=== PATIENT | female | born 1930 | race Caucasian/White ===

== ENCOUNTER → 2016-08-10 | Outpatient (CLI) | payer MEDICARE, OTHER ==
[2015-08-29 00:27] VITALS: BP 145/71
[~2016-08-10] MED LIST: AMIODARONE200 MG PO; ARICEPT10 M1 PO; CALCIUM CITRAT250 M1 PO; CLARITIN10 M1 PO; DAILY MULTIPLE1 T18 PO; FLONASE ALLERG9.9 ML NS; LOPRESSOR 225 MG/TAB PO; LOW DOSE ASPIRI81 M1 PO; MUCINEX1200 MG PO; NAMENDA PO; OSTEO BI-FLEX1 EAC1 PO; PEPCID 20MG TAB20 MG PO; PERCOCET 325 MG1 TA2 PO; SYNTHROID137 MCG PO; TYLENOL EXTRA500 M2 PO; ULTRAM50 M1 PO; VITAMIN C500 M6 PO; VITAMIN D 1001000 IU PO; XALATAN EYE DROPS OU; [UNRECOGNIZED DRUG - REMARK] OU
== END ==
LOC: LAB 05:35
DX: M85.80 Other specified disorders of bone density and structure, unspecified site (principal)

== ENCOUNTER → 2016-09-04 | Outpatient (CLI) | payer MEDICARE, OTHER ==
[2015-08-29 00:27] VITALS: BP 145/71
== END ==
LOC: VAS 08-30 17:36
DX: I35.0 Nonrheumatic aortic (valve) stenosis (principal); I51.7 Cardiomegaly; I08.0 Rheumatic disorders of both mitral and aortic valves

== ENCOUNTER → 2016-09-18 | Outpatient (CLI) | payer MEDICARE, OTHER ==
[2015-08-29 00:27] VITALS: BP 145/71
== END ==
LOC: RAD 15:49
DX: Z13.820 Encounter for screening for osteoporosis (principal); M85.89 Other specified disorders of bone density and structure, multiple sites; M81.0 Age-related osteoporosis without current pathological fracture

== ENCOUNTER → 2016-10-06 | Outpatient (CLI) | payer MEDICARE, OTHER ==
[2015-08-29 00:27] VITALS: BP 145/71
== END ==
LOC: LAB 06:15
DX: M25.551 Pain in right hip (principal); Z96.641 Presence of right artificial hip joint

== ENCOUNTER → 2016-10-26 | Outpatient (CLI) | payer MEDICARE, OTHER ==
[2015-08-29 00:27] VITALS: BP 145/71
== END ==
LOC: RAD 13:35
DX: M89.551 Osteolysis, right thigh (principal); S72.091A Other fracture of head and neck of right femur, initial encounter for closed fracture; M89.9 Disorder of bone, unspecified; Z98.890 Other specified postprocedural states; Z96.641 Presence of right artificial hip joint

== ENCOUNTER → 2016-11-27 | Outpatient (CLI) | payer MEDICARE, OTHER ==
[2015-08-29 00:27] VITALS: BP 145/71
== END ==
LOC: LAB 06:12
DX: E03.4 Atrophy of thyroid (acquired) (principal)

== ENCOUNTER → 2017-04-04 | Outpatient (CLI) | payer MEDICARE, OTHER ==
[2015-08-29 00:27] VITALS: BP 145/71
[2017-04-04 06:29] LABS: ALBUMIN 3.6 g/dL (3.5-5.0); DIRECT BILIRUBIN 0.2 mg/dL (0.0-0.4); TOTAL BILIRUBIN 0.3 mg/dL (0.2-1.3); TOTAL PROTEIN 6.5 g/dL (6.3-8.2)
== END ==
LOC: LAB 05:30
PROVIDERS: Internal Medicine
DX: Z79.899 Other long term (current) drug therapy (principal)

== ENCOUNTER → 2017-06-27 | Outpatient (CLI) | payer MEDICARE, OTHER ==
[2015-08-29 00:27] VITALS: BP 145/71
[2017-06-27 06:12] LABS: EOS # 0.2 (0.04-0.40); HEMATOCRIT 37.1 % (37.0-47.0); LYMPH# 1.9 (1.50-4.00); MEAN CELL VOLUME 96 fl (78-100); MEAN CORPUSCULAR HEMOGLOBIN 31 pg (27-31); MEAN CORPUSCULAR HGB CONC 32 g/dL (33-37); MEAN PLATELET VOLUME 10.9 fl (7.4-10.4); MONO # 0.6 (0.20-0.80); PLATELET COUNT 205 K/mm3 (130-400); RED BLOOD COUNT 3.88 M/mm3 (4.10-5.30); RED CELL DISTRIBUTION WIDTH 14.6 % (11.5-14.5); WHITE BLOOD COUNT 5.7 K/mm3 (4.8-10.8)
[2017-06-27 06:13] LABS: ALBUMIN 3.3 g/dL (3.5-5.0); BUN/CREATININE RATIO 15.6 (6.0-26.0); POTASSIUM 4.2 mmol/L (3.6-5.0); TOTAL BILIRUBIN 0.2 mg/dL (0.2-1.3); TOTAL PROTEIN 6.3 g/dL (6.3-8.2)
[2017-06-27 06:48] LABS: ERYTHROCYTE SEDIMENTATION RATE 16 mm/hr (0-30)
== END ==
LOC: LAB 05:30
PROVIDERS: Internal Medicine
DX: I48.0 Paroxysmal atrial fibrillation (principal); E03.9 Hypothyroidism, unspecified; M85.80 Other specified disorders of bone density and structure, unspecified site; I89.0 Lymphedema, not elsewhere classified

== ENCOUNTER → 2017-07-04 | Outpatient (CLI) | payer MEDICARE, OTHER ==
[2015-08-29 00:27] VITALS: BP 145/71
== END ==
LOC: LAB 05:30
DX: E03.4 Atrophy of thyroid (acquired) (principal)

== ENCOUNTER → 2017-07-19 | Outpatient (CLI) | payer MEDICARE, OTHER ==
[~2017-07-19] VITALS: Ht 157.5 cm; Wt 70.5 kg
[2017-07-19 11:07] VITALS: BP 118/67
== END ==
LOC: AMSURD 11:02
DX: M81.0 Age-related osteoporosis without current pathological fracture (principal)
CPT/HCPCS: J3489

== ENCOUNTER 2017-09-07 18:51 | Emergency (ER) | payer MEDICARE, OTHER ==
[~2017-09-07] VITALS: Ht 157.5 cm; Wt 74.5 kg
[2017-09-07] MEDS ORDERED: TOPCARE PAIN R325 MG PO (19:14)
[2017-09-07] MEDS ORDERED: NEIGHBOR P OU (19:26)
[2017-09-07] MEDS ORDERED: AMIODARONE HCL100 MG PO (19:37)
[2017-09-07] MEDS ORDERED: BETAMETHASONE D15 G1 TP (19:38)
[2017-09-07] MEDS ORDERED: BISACODYL10 M1 RC (19:39)
[2017-09-07] MEDS ORDERED: CODEINE SULFATE15 MG PO (19:41)
[2017-09-07] MEDS ORDERED: COLACE100 M1 PO (19:41)
[2017-09-07] MEDS ORDERED: ICY HOT NO MESS73 ML TP (19:42)
[2017-09-07] MEDS ORDERED: FLEET ENEM1 BOT/133 RC (19:43)
[2017-09-07] MEDS ORDERED: LEVOTHYROXINE125 MCG PO (19:44)
[2017-09-07] MEDS ORDERED: MECLIZINE PO (19:45)
[2017-09-07] MEDS ORDERED: QUALITY CH400 MG/5 M PO (19:46)
[2017-09-07] MEDS ORDERED: GOOD NEIGHBOR P20 M1 PO (19:47)
[2017-09-07] MEDS ORDERED: DOCUSATE SODIUM1 TA2 PO (19:48)
[2017-09-07] MEDS ORDERED: NORCO 325 MG-51 TA1 PO (20:47)
[2017-09-07 21:15] VITALS: BP 148/78
== END 2017-09-07 21:15 | disposition home or self-care (01) ==
LOC: ED 18:51
DX: M25.551 Pain in right hip (principal); M48.00 Spinal stenosis, site unspecified; M25.561 Pain in right knee; Z96.641 Presence of right artificial hip joint; I10 Essential (primary) hypertension; G30.9 Alzheimer's disease, unspecified; F02.80 Dementia in other diseases classified elsewhere, unspecified severity, without behavioral disturbance, psychotic disturbance, mood disturbance, and anxiety

== ENCOUNTER 2017-09-10 02:22 | Emergency (ER) | payer MEDICARE, OTHER ==
[~2017-09-10 02:22] MED LIST changes: +AMIODARONE HCL100 MG PO; +BETAMETHASONE D15 G1 TP; +BISACODYL10 M1 RC; +CODEINE SULFATE15 MG PO; +COLACE100 M1 PO; +DOCUSATE SODIUM1 TA2 PO; +FLEET ENEM1 BOT/133 RC; +GOOD NEIGHBOR P20 M1 PO; +ICY HOT NO MESS73 ML TP; +LEVOTHYROXINE125 MCG PO; +MECLIZINE PO; +NEIGHBOR P OU; +NORCO 325 MG-51 TA1 PO; +QUALITY CH400 MG/5 M PO; +TOPCARE PAIN R325 MG PO
[2017-09-10 04:00] VITALS: BP 164/78
== END 2017-09-10 04:00 | disposition home or self-care (01) ==
LOC: ED 02:22
DX: G89.29 Other chronic pain (principal); M54.41 Lumbago with sciatica, right side; F03.90 Unspecified dementia, unspecified severity, without behavioral disturbance, psychotic disturbance, mood disturbance, and anxiety
CPT/HCPCS: J2270

== ENCOUNTER 2017-09-10 18:56 | Observation (INO) | payer MEDICARE, OTHER ==
[~2017-09-10] VITALS: Ht 157.5 cm; Wt 73.5 kg
[2017-09-10 21:47] VITALS: BP 161/80
[2017-09-10 22:10] VITALS: BP 161/80
[2017-09-11 03:00] VITALS: BP 153/84
[2017-09-11 06:28] VITALS: BP 143/85
[2017-09-11 07:15] LABS: EOS # 0.1 (0.04-0.40); EOS % 1.5 % (1.0-5.0); HEMATOCRIT 37.8 % (37.0-47.0); HEMOGLOBIN 12.2 g/dL (12.5-16.0); LYMPH# 2.2 (1.50-4.00); MEAN CELL VOLUME 93 fl (78-100); MEAN CORPUSCULAR HEMOGLOBIN 30 pg (27-31); MEAN CORPUSCULAR HGB CONC 32 g/dL (33-37); MEAN PLATELET VOLUME 10.9 fl (7.4-10.4); MONO # 0.5 (0.20-0.80); NEU # 3.3 (1.40-6.50); PLATELET COUNT 206 K/mm3 (130-400); RED BLOOD COUNT 4.05 M/mm3 (4.10-5.30); RED CELL DISTRIBUTION WIDTH 14.5 % (11.5-14.5); WHITE BLOOD COUNT 6.1 K/mm3 (4.8-10.8)
[2017-09-11 07:27] LABS: ALBUMIN 3.4 g/dL (3.5-5.0); BUN/CREATININE RATIO 17.1 (6.0-26.0); CALCIUM 8.9 mg/dL (8.4-10.2); POTASSIUM 4.2 mmol/L (3.6-5.0); TOTAL BILIRUBIN 0.3 mg/dL (0.2-1.3); TOTAL PROTEIN 6.2 g/dL (6.3-8.2)
[2017-09-11 08:49] LABS: URINE APPEARANCE CLEAR; URINE BILIRUBIN NEGATIVE (NEGATIVE); URINE BLOOD NEGATIVE (NEGATIVE); URINE COLOR YELLOW; URINE GLUCOSE NEGATIVE (NEGATIVE); URINE KETONE NEGATIVE (NEGATIVE); URINE LEUKOCYTE ESTERASE 1+ (NEGATIVE); URINE NITRATE NEGATIVE (NEGATIVE); URINE PROTEIN(semi-quant) NEGATIVE (NEGATIVE); URINE UROBILINOGEN NORMAL (NORMAL)
[2017-09-11 11:37] VITALS: BP 145/73
[2017-09-11 15:26] VITALS: BP 151/62
[2017-09-11 18:49] VITALS: BP 135/78
[2017-09-11 23:00] VITALS: BP 105/66
[2017-09-12 03:06] VITALS: BP 146/78
[2017-09-12 06:43] VITALS: BP 132/78
[2017-09-12 11:05] VITALS: BP 104/62
[2017-09-12 11:38] VITALS: BP 104/62
== END 2017-09-12 13:21 ==
LOC: ED 18:56 → MED/SURG 21:12
PROVIDERS: ADMIT Nurse Practitioner Primary Care
DX: G45.9 Transient cerebral ischemic attack, unspecified (principal); M48.061 Spinal stenosis, lumbar region without neurogenic claudication; F03.90 Unspecified dementia, unspecified severity, without behavioral disturbance, psychotic disturbance, mood disturbance, and anxiety; I10 Essential (primary) hypertension; Z79.82 Long term (current) use of aspirin; Z79.899 Other long term (current) drug therapy
CPT/HCPCS: G0378; J1650; J1940; J7512

== ENCOUNTER → 2017-09-13 | Outpatient (CLI) | payer MEDICARE, OTHER ==
[2017-09-12 11:38] VITALS: BP 104/62
== END ==
LOC: RAD 16:16
DX: I35.0 Nonrheumatic aortic (valve) stenosis (principal)

== ENCOUNTER → 2017-09-20 | Outpatient (CLI) | payer MEDICARE, OTHER ==
[2017-09-12 11:38] VITALS: BP 104/62
[2017-09-20 16:44] LABS: PH-URINE 5.5 (5.0 - 8.0); URINE APPEARANCE HAZY; URINE BILIRUBIN NEGATIVE (NEGATIVE); URINE BLOOD NEGATIVE (NEGATIVE); URINE COLOR LT YELLOW; URINE GLUCOSE NEGATIVE (NEGATIVE); URINE KETONE NEGATIVE (NEGATIVE); URINE NITRATE NEGATIVE (NEGATIVE); URINE PROTEIN(semi-quant) NEGATIVE (NEGATIVE); URINE UROBILINOGEN NORMAL (NORMAL)
[2017-09-20 16:45] LABS: URINE LEUKOCYTE ESTERASE 1+ (NEGATIVE)
== END ==
LOC: LAB 11:40
PROVIDERS: Internal Medicine
DX: N39.0 Urinary tract infection, site not specified (principal); E03.4 Atrophy of thyroid (acquired)

== ENCOUNTER → 2017-09-28 | Outpatient (CLI) | payer MEDICARE, OTHER ==
[2017-09-12 11:38] VITALS: BP 104/62
== END ==
LOC: LAB 18:05
DX: E03.4 Atrophy of thyroid (acquired) (principal)

== ENCOUNTER → 2017-10-01 | Outpatient (CLI) | payer MEDICARE, OTHER ==
[2017-09-12 11:38] VITALS: BP 104/62
[2017-10-01 14:19] LABS: ALBUMIN 3.9 g/dL (3.5-5.0); DIRECT BILIRUBIN 0.1 mg/dL (0.0-0.4); TOTAL BILIRUBIN 0.3 mg/dL (0.2-1.3); TOTAL PROTEIN 7.2 g/dL (6.3-8.2)
== END ==
LOC: LAB 11:52
PROVIDERS: Internal Medicine
DX: E03.4 Atrophy of thyroid (acquired) (principal)

== ENCOUNTER → 2017-11-15 | Outpatient (CLI) | payer MEDICARE, OTHER | LOC: LAB 09:10 | DX: E03.9 Hypothyroidism, unspecified (principal) ==

== ENCOUNTER → 2018-03-16 | Outpatient (CLI) | payer MEDICARE, OTHER ==
[2018-03-16 08:38] LABS: EOS # 0.1 (0.04-0.40); EOS % 1.9 % (1.0-5.0); HEMATOCRIT 38.7 % (37.0-47.0); HEMOGLOBIN 12.5 g/dL (12.5-16.0); LYMPH# 1.4 (1.50-4.00); MEAN CELL VOLUME 94 fl (78-100); MEAN CORPUSCULAR HEMOGLOBIN 30 pg (27-31); MEAN CORPUSCULAR HGB CONC 32 g/dL (33-37); MEAN PLATELET VOLUME 11.4 fl (7.4-10.4); MONO # 0.6 (0.20-0.80); NEU # 3.6 (1.40-6.50); PLATELET COUNT 240 K/mm3 (130-400); RED BLOOD COUNT 4.13 M/mm3 (4.10-5.30); RED CELL DISTRIBUTION WIDTH 14.9 % (11.5-14.5); WHITE BLOOD COUNT 5.7 K/mm3 (4.8-10.8)
[2018-03-16 08:53] LABS: CALCIUM 9.8 mg/dL (8.4-10.2); POTASSIUM 4.2 mmol/L (3.6-5.0); TOTAL BILIRUBIN 0.5 mg/dL (0.2-1.3); TOTAL PROTEIN 6.5 g/dL (6.3-8.2)
== END ==
LOC: LAB 07:50
PROVIDERS: Internal Medicine
DX: M81.0 Age-related osteoporosis without current pathological fracture (principal); E03.9 Hypothyroidism, unspecified; D64.9 Anemia, unspecified; G30.1 Alzheimer's disease with late onset; F02.81 Dementia in other diseases classified elsewhere, unspecified severity, with behavioral disturbance

== ENCOUNTER → 2018-04-03 | Outpatient (CLI) | payer MEDICARE, OTHER ==
[2018-04-03 11:24] LABS: ALBUMIN 3.3 g/dL (3.5-5.0); DIRECT BILIRUBIN 0.3 mg/dL (0.0-0.4); TOTAL BILIRUBIN 0.3 mg/dL (0.2-1.3); TOTAL PROTEIN 5.8 g/dL (6.3-8.2)
== END ==
LOC: LAB 06:45
PROVIDERS: Internal Medicine
DX: E03.9 Hypothyroidism, unspecified (principal)

== ENCOUNTER → 2018-09-17 | Outpatient (CLI) | payer MEDICARE, OTHER ==
[2018-09-17 08:18] LABS: ALBUMIN 3.3 g/dL (3.4-4.8)
[2018-09-17 08:19] LABS: POTASSIUM 4.2 mmol/L (3.5-5.1)
[2018-09-17 08:20] LABS: CALCIUM 8.9 mg/dL (8.3-10.5)
[2018-09-17 08:21] LABS: TOTAL PROTEIN 5.9 g/dL (6.2-8.1)
[2018-09-17 08:23] LABS: TOTAL BILIRUBIN 0.3 mg/dL (0.2-1.2)
[2018-09-17 08:31] LABS: BASO # 0.1 (0.02-0.10); EOS # 0.2 (0.04-0.40); EOS % 3.6 % (1.0-5.0); HEMATOCRIT 34.5 % (37.0-47.0); HEMOGLOBIN 10.4 g/dL (12.5-16.0); LYMPH# 1.4 (1.50-4.00); MEAN CELL VOLUME 93 fl (78-100); MEAN CORPUSCULAR HEMOGLOBIN 28 pg (27-31); MEAN CORPUSCULAR HGB CONC 30 g/dL (33-37); MEAN PLATELET VOLUME 11.3 fl (7.4-10.4); MONO # 0.5 (0.20-0.80); NEU # 3.2 (1.40-6.50); PLATELET COUNT 263 K/mm3 (130-400); RED CELL DISTRIBUTION WIDTH 15.4 % (11.5-14.5); WHITE BLOOD COUNT 5.4 K/mm3 (4.8-10.8)
== END ==
LOC: LAB 06:40
PROVIDERS: Internal Medicine
DX: M81.0 Age-related osteoporosis without current pathological fracture (principal); D64.9 Anemia, unspecified; E03.9 Hypothyroidism, unspecified; G30.1 Alzheimer's disease with late onset; F02.81 Dementia in other diseases classified elsewhere, unspecified severity, with behavioral disturbance

== ENCOUNTER → 2018-10-01 | Outpatient (CLI) | payer MEDICARE, OTHER ==
[2018-10-01 07:02] LABS: ALBUMIN 3.7 g/dL (3.4-4.8)
[2018-10-01 07:05] LABS: TOTAL PROTEIN 6.2 g/dL (6.2-8.1)
[2018-10-01 07:07] LABS: TOTAL BILIRUBIN 0.3 mg/dL (0.2-1.2)
[2018-10-01 07:10] LABS: DIRECT BILIRUBIN 0.1 mg/dL (0.0-0.5)
== END ==
LOC: LAB 05:20
PROVIDERS: Internal Medicine
DX: E03.4 Atrophy of thyroid (acquired) (principal)

== ENCOUNTER → 2018-10-02 | Outpatient (CLI) | payer MEDICARE, OTHER | LOC: RAD 09:47 → MAMMO 10:00 → RAD 10:00 | DX: Z12.31 Encounter for screening mammogram for malignant neoplasm of breast (principal); M81.0 Age-related osteoporosis without current pathological fracture ==

== ENCOUNTER → 2018-12-09 | Outpatient (CLI) | payer MEDICARE, OTHER | LOC: LAB 06:55 | DX: M81.0 Age-related osteoporosis without current pathological fracture (principal); E03.4 Atrophy of thyroid (acquired) ==

== ENCOUNTER 2018-12-27 10:38 | Emergency (ER) | payer MEDICARE, OTHER ==
[2018-12-27 10:53] VITALS: BP 98/46
[2018-12-27 11:09] LABS: HEMOGLOBIN 11.1 g/dL (12.5-16.0); MEAN CELL VOLUME 94 fl (78-100); MEAN CORPUSCULAR HEMOGLOBIN 30 pg (27-31); MEAN CORPUSCULAR HGB CONC 32 g/dL (33-37); MEAN PLATELET VOLUME 10.9 fl (7.4-10.4); PLATELET COUNT 214 K/mm3 (130-400); RED BLOOD COUNT 3.74 M/mm3 (4.10-5.30); RED CELL DISTRIBUTION WIDTH 15.4 % (11.5-14.5); WHITE BLOOD COUNT 12.2 K/mm3 (4.8-10.8)
[2018-12-27 11:19] LABS: ALBUMIN 3.7 g/dL (3.4-4.8)
[2018-12-27 11:20] LABS: CALCIUM 9.2 mg/dL (8.3-10.5)
[2018-12-27 11:22] LABS: LYMPHOCYTE 10 % (20-51); MONOCYTE 11 % (3-10); NEUTROPHILS 78 % (42-75)
[2018-12-27 11:23] LABS: TOTAL BILIRUBIN 0.6 mg/dL (0.2-1.2)
[2018-12-27] MEDS ORDERED: ZITHROMAX 250M250 MG PO (11:41)
[2018-12-27] MEDS ORDERED: MUCINEX DM 60 M1 TER PO (11:46)
[2018-12-27] MEDS ORDERED: HYDROCODONE-CHLO5 M1 PO (11:46)
== END 2018-12-27 12:02 | disposition home or self-care (01) ==
LOC: ED 10:38
PROVIDERS: Nurse Practitioner Primary Care
DX: J20.9 Acute bronchitis, unspecified (principal); I10 Essential (primary) hypertension; E07.9 Disorder of thyroid, unspecified; G30.9 Alzheimer's disease, unspecified; F02.80 Dementia in other diseases classified elsewhere, unspecified severity, without behavioral disturbance, psychotic disturbance, mood disturbance, and anxiety; Z79.82 Long term (current) use of aspirin

== ENCOUNTER → 2019-04-04 | Outpatient (CLI) | payer MEDICARE, OTHER ==
[~2019-04-04] MED LIST changes: +HYDROCODONE-CHLO5 M1 PO; +MUCINEX DM 60 M1 TER PO; +ZITHROMAX 250M250 MG PO
[2019-04-04 05:09] LABS: DIRECT BILIRUBIN 0.1 mg/dL (0.0-0.5); TOTAL BILIRUBIN 0.2 mg/dL (0.2-1.2)
[2019-04-04 05:16] LABS: ALBUMIN 3.5 g/dL (3.4-4.8)
== END ==
LOC: LAB 04:16
PROVIDERS: Internal Medicine
DX: E03.4 Atrophy of thyroid (acquired) (principal)

== ENCOUNTER → 2019-05-23 | Outpatient (CLI) | payer MEDICARE, OTHER ==
[2019-05-23 08:44] LABS: ALBUMIN 3.6 g/dL (3.4-4.8)
[2019-05-23 08:45] LABS: POTASSIUM 4.4 mmol/L (3.5-5.1)
[2019-05-23 08:46] LABS: CALCIUM 9.3 mg/dL (8.3-10.5)
[2019-05-23 08:49] LABS: TOTAL BILIRUBIN 0.3 mg/dL (0.2-1.2)
[2019-05-23 08:56] LABS: HEMATOCRIT 37.2 % (37.0-47.0); HEMOGLOBIN 11.5 g/dL (12.5-16.0); MEAN CELL VOLUME 98 fl (78-100); MEAN CORPUSCULAR HEMOGLOBIN 30 pg (27-31); MEAN CORPUSCULAR HGB CONC 31 g/dL (33-37); MEAN PLATELET VOLUME 11.6 fl (7.4-10.4); PLATELET COUNT 190 K/mm3 (130-400); RED CELL DISTRIBUTION WIDTH 15.2 % (11.5-14.5)
[2019-05-23 10:30] LABS: LYMPHOCYTE 26 % (20-51); MONOCYTE 13 % (3-10); NEUTROPHILS 56 % (42-75)
== END ==
LOC: LAB 07:15
PROVIDERS: Internal Medicine
DX: G30.1 Alzheimer's disease with late onset (principal); F02.80 Dementia in other diseases classified elsewhere, unspecified severity, without behavioral disturbance, psychotic disturbance, mood disturbance, and anxiety; M81.0 Age-related osteoporosis without current pathological fracture; E03.9 Hypothyroidism, unspecified; D64.9 Anemia, unspecified

== ENCOUNTER → 2019-10-02 | Outpatient (CLI) | payer MEDICARE, OTHER ==
[2019-10-02 10:24] LABS: ALBUMIN 3.8 g/dL (3.4-4.8)
[2019-10-02 10:28] LABS: TOTAL BILIRUBIN 0.4 mg/dL (0.2-1.2)
[2019-10-02 10:32] LABS: DIRECT BILIRUBIN 0.2 mg/dL (0.0-0.5)
== END ==
LOC: LAB 09:54
PROVIDERS: Internal Medicine
DX: E03.9 Hypothyroidism, unspecified (principal)

== ENCOUNTER → 2019-11-14 | Outpatient (CLI) | payer MEDICARE, OTHER ==
[2019-11-14 08:38] LABS: HEMATOCRIT 34.1 % (37.0-47.0); HEMOGLOBIN 10.5 g/dL (12.5-16.0); MEAN CELL VOLUME 95 fl (78-100); MEAN CORPUSCULAR HEMOGLOBIN 29 pg (27-31); MEAN CORPUSCULAR HGB CONC 31 g/dL (33-37); MEAN PLATELET VOLUME 11.4 fl (7.4-10.4); MONO # 0.3 (0.20-0.80); NEU # 4.1 (1.40-6.50); PLATELET COUNT 218 K/mm3 (130-400); WHITE BLOOD COUNT 5.5 K/mm3 (4.8-10.8)
[2019-11-14 08:45] LABS: ALBUMIN 3.5 g/dL (3.4-4.8)
[2019-11-14 08:46] LABS: POTASSIUM 4.2 mmol/L (3.5-5.1)
[2019-11-14 08:50] LABS: TOTAL BILIRUBIN 0.2 mg/dL (0.2-1.2)
== END ==
LOC: LAB 07:40
PROVIDERS: Internal Medicine
DX: M81.0 Age-related osteoporosis without current pathological fracture (principal); D64.9 Anemia, unspecified; E03.9 Hypothyroidism, unspecified; G30.1 Alzheimer's disease with late onset

== ENCOUNTER → 2019-12-01 | Outpatient (CLI) | payer MEDICARE, OTHER ==
[2019-12-01 13:59] LABS: URINE APPEARANCE CLOUDY; URINE BILIRUBIN NEGATIVE (NEGATIVE); URINE COLOR YELLOW; URINE GLUCOSE NEGATIVE (NEGATIVE); URINE KETONE NEGATIVE (NEGATIVE); URINE NITRATE NEGATIVE (NEGATIVE); URINE PROTEIN(semi-quant) TRACE mg/dL (NEGATIVE); URINE UROBILINOGEN NORMAL (NORMAL)
[2019-12-01 14:00] LABS: URINE BLOOD NEGATIVE (NEGATIVE); URINE LEUKOCYTE ESTERASE 1+ (NEGATIVE); URINE WBC >50 /hpf (0-3)
== END ==
LOC: LAB 13:22
PROVIDERS: Internal Medicine
DX: N30.00 Acute cystitis without hematuria (principal); F03.90 Unspecified dementia, unspecified severity, without behavioral disturbance, psychotic disturbance, mood disturbance, and anxiety

== ENCOUNTER → 2019-12-09 | Outpatient (CLI) | payer MEDICARE, OTHER | LOC: RAD 10:30 | DX: R06.02 Shortness of breath (principal) ==

== ENCOUNTER → 2019-12-26 | Outpatient (CLI) | payer MEDICARE, OTHER | LOC: LAB 11:28 | DX: E03.4 Atrophy of thyroid (acquired) (principal) ==

== ENCOUNTER → 2019-12-27 | Outpatient (CLI) | payer MEDICARE, OTHER ==
[2019-12-27 09:57] LABS: URINE APPEARANCE HAZY; URINE COLOR YELLOW
[2019-12-27 09:58] LABS: URINE BILIRUBIN NEGATIVE (NEGATIVE); URINE BLOOD NEGATIVE (NEGATIVE); URINE GLUCOSE NEGATIVE (NEGATIVE); URINE KETONE NEGATIVE (NEGATIVE); URINE LEUKOCYTE ESTERASE NEGATIVE (NEGATIVE); URINE NITRATE NEGATIVE (NEGATIVE); URINE PROTEIN(semi-quant) NEGATIVE (NEGATIVE); URINE UROBILINOGEN NORMAL (NORMAL); URINE WBC 0-1 /hpf (0-3)
== END ==
LOC: LAB 07:40
PROVIDERS: Internal Medicine
DX: R31.9 Hematuria, unspecified (principal)

== ENCOUNTER → 2020-01-24 | Outpatient (CLI) | payer MEDICARE, OTHER ==
[2020-01-24 11:24] LABS: PH-URINE 5.5 (5.0 - 8.0); URINE APPEARANCE CLOUDY; URINE COLOR YELLOW
[2020-01-24 11:25] LABS: URINE BILIRUBIN NEGATIVE (NEGATIVE); URINE BLOOD TRACE (NEGATIVE); URINE GLUCOSE NEGATIVE (NEGATIVE); URINE KETONE NEGATIVE (NEGATIVE); URINE LEUKOCYTE ESTERASE 2+ (NEGATIVE); URINE NITRATE POSITIVE (NEGATIVE); URINE PROTEIN(semi-quant) TRACE mg/dL (NEGATIVE); URINE UROBILINOGEN NORMAL (NORMAL); URINE WBC >50 /hpf (0-3)
== END ==
LOC: LAB 08:20
PROVIDERS: Internal Medicine
DX: R39.81 Functional urinary incontinence (principal); R82.998 Other abnormal findings in urine

== ENCOUNTER → 2020-04-05 | Outpatient (CLI) | payer MEDICARE, OTHER ==
[2020-04-05 11:24] LABS: ALBUMIN 3.8 g/dL (3.4-4.8)
[2020-04-05 11:28] LABS: TOTAL BILIRUBIN 0.3 mg/dL (0.2-1.2)
[2020-04-05 11:32] LABS: DIRECT BILIRUBIN 0.1 mg/dL (0.0-0.5)
== END ==
LOC: LAB 10:26
PROVIDERS: Internal Medicine
DX: E03.4 Atrophy of thyroid (acquired) (principal)

== ENCOUNTER → 2020-04-21 | Outpatient (CLI) | payer MEDICARE, OTHER ==
[2020-04-21 10:48] LABS: URINE APPEARANCE CLOUDY; URINE BILIRUBIN NEGATIVE (NEGATIVE); URINE BLOOD NEGATIVE (NEGATIVE); URINE COLOR YELLOW; URINE GLUCOSE NEGATIVE (NEGATIVE); URINE KETONE NEGATIVE (NEGATIVE); URINE LEUKOCYTE ESTERASE 1+ (NEGATIVE); URINE NITRATE POSITIVE (NEGATIVE); URINE PROTEIN(semi-quant) TRACE mg/dL (NEGATIVE); URINE UROBILINOGEN NORMAL (NORMAL); URINE WBC >50 /hpf (0-3)
== END ==
LOC: LAB 10:08
PROVIDERS: Internal Medicine
DX: R41.82 Altered mental status, unspecified (principal)

== ENCOUNTER → 2020-08-06 | Outpatient (CLI) | payer MEDICARE, OTHER ==
[2020-08-06 08:28] LABS: URINE APPEARANCE HAZY; URINE BILIRUBIN NEGATIVE (NEGATIVE); URINE BLOOD TRACE (NEGATIVE); URINE COLOR YELLOW; URINE GLUCOSE NEGATIVE (NEGATIVE); URINE KETONE NEGATIVE (NEGATIVE); URINE LEUKOCYTE ESTERASE 1+ (NEGATIVE); URINE NITRATE NEGATIVE (NEGATIVE); URINE PROTEIN(semi-quant) NEGATIVE (NEGATIVE); URINE UROBILINOGEN NORMAL (NORMAL); URINE WBC 16-30 /hpf (0-3)
== END ==
LOC: LAB 07:00
PROVIDERS: Internal Medicine
DX: F03.90 Unspecified dementia, unspecified severity, without behavioral disturbance, psychotic disturbance, mood disturbance, and anxiety (principal)

== ENCOUNTER → 2020-08-24 | Outpatient (CLI) | payer MEDICARE, OTHER ==
[2020-08-24 10:54] LABS: URINE APPEARANCE CLOUDY; URINE BILIRUBIN NEGATIVE (NEGATIVE); URINE BLOOD TRACE (NEGATIVE); URINE COLOR YELLOW; URINE GLUCOSE NEGATIVE (NEGATIVE); URINE KETONE NEGATIVE (NEGATIVE); URINE LEUKOCYTE ESTERASE 1+ (NEGATIVE); URINE NITRATE POSITIVE (NEGATIVE); URINE PROTEIN(semi-quant) TRACE mg/dL (NEGATIVE); URINE UROBILINOGEN NORMAL (NORMAL)
[2020-08-24 10:55] LABS: URINE WBC 31-50 /hpf (0-3)
== END ==
LOC: LAB 09:19
PROVIDERS: Internal Medicine
DX: R94.39 Abnormal result of other cardiovascular function study (principal)

== ENCOUNTER → 2020-10-04 | Outpatient (CLI) | payer MEDICARE, OTHER ==
[2020-10-04 11:25] LABS: ALBUMIN 4.1 g/dL (3.4-4.8)
[2020-10-04 11:30] LABS: TOTAL BILIRUBIN 0.3 mg/dL (0.2-1.2)
[2020-10-04 11:33] LABS: DIRECT BILIRUBIN 0.2 mg/dL (0.0-0.5)
== END ==
LOC: LAB 10:47
PROVIDERS: Internal Medicine
DX: E03.4 Atrophy of thyroid (acquired) (principal); Z01.89 Encounter for other specified special examinations

== ENCOUNTER → 2020-10-13 | Outpatient (CLI) | payer MEDICARE, OTHER ==
[2020-10-13 20:07] LABS: URINE APPEARANCE CLOUDY; URINE BILIRUBIN NEGATIVE (NEGATIVE); URINE COLOR YELLOW; URINE GLUCOSE NEGATIVE (NEGATIVE); URINE KETONE NEGATIVE (NEGATIVE); URINE NITRATE NEGATIVE (NEGATIVE); URINE PROTEIN(semi-quant) TRACE mg/dL (NEGATIVE); URINE UROBILINOGEN NORMAL (NORMAL)
[2020-10-13 20:08] LABS: URINE BLOOD TRACE (NEGATIVE); URINE LEUKOCYTE ESTERASE 2+ (NEGATIVE); URINE WBC >50 /hpf (0-3)
== END ==
LOC: LAB 16:44
PROVIDERS: Internal Medicine
DX: I63.9 Cerebral infarction, unspecified (principal)

== ENCOUNTER → 2020-10-15 | Outpatient (CLI) | payer MEDICARE, OTHER ==
[2020-10-16 11:32] LABS: URINE APPEARANCE HAZY; URINE COLOR YELLOW; URINE GLUCOSE NEGATIVE (NEGATIVE); URINE KETONE NEGATIVE (NEGATIVE); URINE PROTEIN(semi-quant) NEGATIVE (NEGATIVE)
[2020-10-16 11:33] LABS: URINE BILIRUBIN NEGATIVE (NEGATIVE); URINE BLOOD TRACE (NEGATIVE); URINE LEUKOCYTE ESTERASE 1+ (NEGATIVE); URINE NITRATE POSITIVE (NEGATIVE); URINE UROBILINOGEN NORMAL (NORMAL); URINE WBC 16-30 /hpf (0-3)
== END ==
LOC: LAB 22:30
PROVIDERS: Internal Medicine
DX: N39.0 Urinary tract infection, site not specified (principal)

== ENCOUNTER → 2020-12-17 | Outpatient (REF) | LOC: LAB 17:22 | DX: M81.0 Age-related osteoporosis without current pathological fracture (principal); D50.9 Iron deficiency anemia, unspecified; I48.0 Paroxysmal atrial fibrillation ==

== ENCOUNTER → 2020-12-21 | Outpatient (CLI) | payer MEDICARE, OTHER ==
[2020-12-21 11:42] LABS: ALBUMIN 3.9 g/dL (3.4-4.8); POTASSIUM 3.9 mmol/L (3.5-5.1)
[2020-12-21 11:43] LABS: BASO # 0.06 K/mm3 (0.02-0.10); CALCIUM 9.9 mg/dL (8.3-10.5); EOS # 0.18 K/mm3 (0.04-0.40); EOS % 2.5 % (1.0-5.0); HEMOGLOBIN 13.3 g/dL (12.5-16.0); LYMPH# 1.73 K/mm3 (1.50-4.00); MEAN CELL VOLUME 96 fl (78-100); MEAN CORPUSCULAR HEMOGLOBIN 31 pg (27-31); MEAN CORPUSCULAR HGB CONC 32 g/dL (33-37); MEAN PLATELET VOLUME 11.3 fl (7.4-10.4); MONO # 0.37 K/mm3 (0.20-0.80); NEU # 4.71 K/mm3 (1.40-6.50); PLATELET COUNT 286 K/mm3 (130-400); RED BLOOD COUNT 4.28 M/mm3 (4.10-5.30); RED CELL DISTRIBUTION WIDTH 13.9 % (11.5-14.5); WHITE BLOOD COUNT 7.1 K/mm3 (4.8-10.8)
[2020-12-21 11:45] LABS: TOTAL PROTEIN 6.8 g/dL (6.2-8.1)
[2020-12-21 11:46] LABS: TOTAL BILIRUBIN 0.3 mg/dL (0.2-1.2)
== END ==
LOC: LAB 09:48
PROVIDERS: Internal Medicine
DX: I48.0 Paroxysmal atrial fibrillation (principal); E61.1 Iron deficiency; M81.0 Age-related osteoporosis without current pathological fracture

== ENCOUNTER → 2021-01-14 | Outpatient (CLI) | payer MEDICARE ==
[~2021-01-14] VITALS: Ht 157.5 cm; Wt 73.5 kg
[2021-01-14 12:30] VITALS: BP 113/80
[2021-01-14 13:45] VITALS: BP 121/71
[2021-01-14 14:15] VITALS: BP 108/68
[2021-01-14 14:30] VITALS: BP 101/64
== END ==
LOC: AMSURD 12:32
DX: U07.1 COVID-19 (principal)
CPT/HCPCS: M0243; Q0244